=== PATIENT | female | born 1990 | race Caucasian/White ===

== ENCOUNTER 2025-09-17 06:23 | Day surgery (SDC) | payer BC ==
[~2025-09-17 06:23] MED LIST: Clindamycin Phosphate in D5W 900 MG in Premix Bag 1 BAG IV ONE; Esmolol 100 MG/10 ML SDV ONE; Glycopyrrolate 0.2 MG/ML 2 ML SDV ONE; Ketamine HCL/NACL, ISO-OSM 50 MG/5 ML Syringe ONE; Midazolam 1 MG/ML 2 ML SDV ONE; Sodium Chloride 0.9% 10 ML Syringe FLUSH PRN; Sodium Chloride 0.9% 10 ML Syringe FLUSH SCH; dexmedeTOMIDine HCl 200 MCG/2 ML SDV ONE; fentaNYL 250 MCG/5 ML SDV ONE
[2025-09-17] MEDS: Lactated Ringers 1,000 ML IV SCH (06:45)
[2025-09-17] MEDS ORDERED: propofoL 1,000 MG/100 ML 100 ML ONE (06:48)
[2025-09-17 06:53] LABS: BASOPHILS ABSOLUTE AUTO 0.1 K/mm3 (0.0-0.2); BASOPHILS PERCENT AUTO 0.8 % (0.0-1.0); EOSINOPHILS ABSOLUTE AUTO 0.1 K/mm3 (0.0-0.4); EOSINOPHILS PERCENT AUTO 1.0 % (0.0-6.0); IMMATURE GRAN ABSOLUTE AUTO 0.01 K/mm3 (0.00-0.05); IMMATURE GRAN PERCENT AUTO 0.1 % (0.0-0.4); LYMPHOCYTES ABSOLUTE AUTO 0.8 K/mm3 (1.0-4.8); LYMPHOCYTES PERCENT AUTO 11.0 % (24.0-44.0); MEAN PLATELET VOLUME 8.6 fl (9.4-12.3); MONOCYTES ABSOLUTE AUTO 0.7 K/mm3 (0.0-0.8); MONOCYTES PERCENT AUTO 9.9 % (0.0-8.0); NEUTROPHILS ABSOLUTE AUTO 5.4 K/mm3 (1.8-7.7); NEUTROPHILS PERCENT AUTO 77.2 % (41.0-71.0); NRBC ABSOLUTE 0.00 (0.00-0.02); NRBC PERCENT 0.0 % (0.0-0.2); PLATELET COUNT,PLT 278 K/mm3 (150-400); RED BLOOD CELL COUNT 4.91 M/mm3 (4.10-5.30); WHITE BLOOD CELL COUNT,WBC 7.06 K/mm3 (3.9-11.3)
[2025-09-17 07:15] LABS: BLOOD UREA NITROGEN,BUN 12.0 mg/dL (7-18); CARBON DIOXIDE,CO2 26.0 mEq/L (21-32); CHLORIDE,CL 103.0 mEq/L (98-107); CREATININE 0.8 mg/dL (0.55-1.02); EST CRCL DRUG DOSING (CG) 89.86 mL/min; ESTIMATED GFR 100.0 mL/min (>60); GLUCOSE RANDOM 91.0 mg/dL (70-99); POTASSIUM,K 3.9 mEq/L (3.5-5.1); SODIUM,NA 140.0 mEq/L (136-145)
[2025-09-17] MEDS ORDERED: Clindamycin Phosphate in D5W 900 MG in Premix Bag 1 BAG IV ONE (07:15)
[2025-09-17] MEDS ORDERED: Gentamicin 40 MG/ML 20 ML MDV ONE (07:19)
[2025-09-17] MEDS ORDERED: Dexamethasone 4 MG/ML 5 ML MDV ONE (07:31)
[2025-09-17] MEDS ORDERED: propofoL 500 MG/50 ML 50 ML ONE (07:41)
[2025-09-17] MEDS ORDERED: Lactated Ringers 1,000 ML ONE (07:52)
[2025-09-17] MEDS ORDERED: Ondansetron 4 MG/2 ML SDV ONE (07:53)
[2025-09-17] MEDS ORDERED: Ketorolac 30 MG/ML SDV ONE (07:54)
[2025-09-17] MEDS: Lidocaine 1% with EPINEPHrine 1:100,000 20 ML MDV ONE (08:14)
[2025-09-17] MEDS: Acetaminophen/oxyCODONE 325-5 MG Tab PO SCH (11:32)
[2025-09-17 12:54] VITALS: BP 117/71; PULSE 80
== END 2025-09-17 12:20 | disposition home or self-care (01) ==
LOC: JD.SDS 06:23
PROVIDERS: ATTEND Obstetrics & Gynecology
DX: N71.1 Chronic inflammatory disease of uterus (principal); N83.01 Follicular cyst of right ovary; N83.8 Other noninflammatory disorders of ovary, fallopian tube and broad ligament; T83.39XA Other mechanical complication of intrauterine contraceptive device, initial encounter; I10 Essential (primary) hypertension; E66.01 Morbid (severe) obesity due to excess calories; Z79.899 Other long term (current) drug therapy; Z79.890 Hormone replacement therapy
CPT/HCPCS: 36415; 58552; 80048; 81025; 85025; 86850; 86900; 86901; A9270; J0665; J0736; J1100; J1580; J1596; J1805; J1885; J2003; J2004; J2250; J2405; J2704; J3010; J7120; 00944; J1171; J3490

== ENCOUNTER 2025-10-19 12:34 | Emergency (ER) | payer BC ==
[2025-10-19 13:59] LABS: BASOPHILS ABSOLUTE AUTO 0.1 K/mm3 (0.0-0.2); BASOPHILS PERCENT AUTO 1.2 % (0.0-1.0); EOSINOPHILS ABSOLUTE AUTO 0.3 K/mm3 (0.0-0.4); EOSINOPHILS PERCENT AUTO 4.0 % (0.0-6.0); IMMATURE GRAN ABSOLUTE AUTO 0.01 K/mm3 (0.00-0.05); IMMATURE GRAN PERCENT AUTO 0.2 % (0.0-0.4); LYMPHOCYTES ABSOLUTE AUTO 2.4 K/mm3 (1.0-4.8); LYMPHOCYTES PERCENT AUTO 37.3 % (24.0-44.0); MEAN PLATELET VOLUME 8.9 fl (9.4-12.3); MONOCYTES ABSOLUTE AUTO 0.4 K/mm3 (0.0-0.8); MONOCYTES PERCENT AUTO 6.3 % (0.0-8.0); NEUTROPHILS ABSOLUTE AUTO 3.3 K/mm3 (1.8-7.7); NEUTROPHILS PERCENT AUTO 51.0 % (41.0-71.0); NRBC ABSOLUTE 0.00 (0.00-0.02); NRBC PERCENT 0.0 % (0.0-0.2); PLATELET COUNT,PLT 305 K/mm3 (150-400); RED BLOOD CELL COUNT 4.76 M/mm3 (4.10-5.30); WHITE BLOOD CELL COUNT,WBC 6.49 K/mm3 (3.9-11.3)
[2025-10-19 14:21] LABS: A/G RATIO 1.0 (1-2); ALANINE AMINOTRANSFERASE,ALT 32.0 U/L (14-59); ASPARTATE AMNIOTRANSFERASE,AST 30.0 U/L (15-37); BILIRUBIN TOTAL 0.5 mg/dL (0.2-1.0); BLOOD UREA NITROGEN,BUN 12.0 mg/dL (7-18); CARBON DIOXIDE,CO2 24.0 mEq/L (21-32); CHLORIDE,CL 106.0 mEq/L (98-107); CREATININE 0.7 mg/dL (0.55-1.02); EST CRCL DRUG DOSING (CG) 102.86 mL/min; ESTIMATED GFR 117.0 mL/min (>60); GLUCOSE RANDOM 90.0 mg/dL (70-99); POTASSIUM,K 3.7 mEq/L (3.5-5.1); PROTEIN TOTAL,TP 7.8 g/dl (6.4-8.2); SODIUM,NA 142.0 mEq/L (136-145)
[2025-10-19] MEDS: Iopamidol 612 MG/ML 100 ML Bottle IVPUSH ONE (14:30)
[2025-10-19] MEDS: Sodium Chloride 0.9% 10 ML Syringe FLUSH PRN (14:30)
[2025-10-19 16:39] VITALS: BP 122/79; PULSE 86
== END 2025-10-19 16:29 | disposition home or self-care (01) ==
LOC: JD.ED 12:34
DX: Z88.8 Allergy status to other drugs, medicaments and biological substances (principal); Z79.899 Other long term (current) drug therapy; Z79.890 Hormone replacement therapy; Z90.710 Acquired absence of both cervix and uterus
CPT/HCPCS: 36415; 74177; 80053; 85025; 86140; 99284; Q9967; 99283